=== PATIENT | female | born 1930 | race Caucasian/White ===

== ENCOUNTER 2019-02-17 13:49 | Inpatient (IN) | payer MEDICARE ==
[2019-02-17] MEDS ORDERED: Succinylcholine Chloride 20 MG/ML 10 ml SYRINGE FS ONE (14:34)
[2019-02-17 14:37] LABS: Bilirubin Negative (Negative); Blood, Urine Small (Negative); Clarity CLEAR (Clear); Glucose, Urine (Dipstick) Negative (Negative); Leukocyte Negative (Negative); Nitrite Negative (Negative); Protein, Urine (Dipstick) 30 mg/dL (Neg-Trace); Specific Gravity, Urine 1.022 (1.002-1.036); Urobilinogen 0.2 mg/dL (0.2-1.0); pH, Urine 6.5 (5.0-9.0)
[2019-02-17 14:38] LABS: Bacteria/HPF None Seen HPF (None Seen); Pathc Cast-AUWi Flag 1.49 (0-2.49); WBC/HPF 0-3 HPF (0-3)
[2019-02-17 14:46] LABS: Amphetamine Not Detected (NotDetected); Barbiturates Screen Not Detected (NotDetected); Benzodiazepine Screen Not Detected (NotDetected); Cocaine Metabolite Screen Not Detected (NotDetected); Medtox Control Line Valid? VALID (VALID); Medtox Reader # READER 1; Methadone Not Detected (NotDetected); Methamphetamine Not Detected (NotDetected); Opiate Screen Not Detected (NotDetected); Oxycodone Screen Not Detected (NotDetected); Phencyclidine (PCP) Not Detected (NotDetected); THC/Cannabinoid Screen Not Detected (NotDetected); Tricyclic Screen Not Detected (NotDetected)
[2019-02-17] MEDS ORDERED: Propofol 1,000 MG/100 ML VIAL IV ONE (14:46)
[2019-02-17] MEDS ORDERED: PROPOFOL 0 ML ONE (14:46)
[2019-02-17 14:48] LABS: Hyaline Casts/LPF NONE SEEN LPF (0-3 Hyaline); Renal Epithelial None Seen HPF (0-3); Transitional Epithelial NONE SEEN HPF (0-3)
--- NOTE | 2019-02-17 15:00 | CT ---
CT BRAIN NONCONTRAST: DATE: 02/17/19 TIME: 1431 hours HISTORY: 88-year-old female with altered mental status, acute right-sided facial droop, and right hemiparesis. Dr. Fisher spoke by telephone with Dr. Singh of the emergency department at 1436 hours on 02/17/19. He is already aware of the large intracranial hemorrhage. COMPARISON: 02/22/2008. FINDINGS: Previously in 2007, there was an approximately 2 x 4 cm intra-axial hemorrhage in the superior portio n of the left cerebral hemisphere. Currently, there is a new, much larger acute intra-axial hematoma in the left cerebral hemisphere, measuring approximately 9 x 4.5 x 5.5 cm. The hemorrhage involves th e paracentral upper portion of the left cerebral hemisphere, and reaches the vertex of the brain. Its inferior extent is at the parietal and occipital lobes. It has broken through into the left lateral ventricle where there is a hematoma. The hematoma extends into the third ventricle. There are blood-fluid levels in the occipital horns of the lateral ventricles bilaterally. The occipi blake horns are dilated. There is a 1.2 cm (12 mm) left to right midline shift of the septum pellucidum . There is vasogenic edema surrounding the hematoma. The calvarium is intact. IMPRESSION: Large, acute intra-axial hematoma in the left cerebral hemisphere with intraventricular extension, ma ss effect, and subfalcine herniation. CODE CR. JN R
--- NOTE | 2019-02-17 15:10 | RAD ---
PORTABLE CHEST: Date: 02/17/19 INDICATION: Mental status change. COMPARISON: 1 view chest from 2007. FINDINGS: ET tube is in place with tip above jad. A NG tube is in place. Tip not visualized. The lungs appear clear with no infiltrate. No evidence of vascular congestion or edema. Heart size is upper normal and stable. Aortic calcification again noted. IMPRESSION: No acute lung findings. POS: [facility]
[2019-02-17 15:13] LABS: Actual Bicarbonate (HCO3a) 22.9 mEq/L (22-28); Analyzer IN Cardio ER; Base Excess (BEa) -0.1 mEq/L (-2.0 to +3.0); CO2 Tension 32.4 mmHg (35.0-45.0); Carboxyhemoglobin (COHb) 0.3 gm% (0.0-3.0); O2 Tension (PaO2) 193.1 mmHg (> 60.0); pH, Arterial 7.47 (7.35-7.45)
[2019-02-17 15:14] LABS: Puncture Site RRBRACH
[2019-02-17] MEDS ORDERED: niCARdipine 20MG In NaCl 0 MG/0 ML BAG ONE (15:14)
[2019-02-17 15:24] LABS: #Lymphocytes 0.5 thou/uL (1.20-3.40); #Monocytes 0.3 thou/uL (0.11-0.59); #Neutrophils 7.9 thou/uL (1.40-6.50); %Basophils 0.4 % (0.0-1.0); %Eosinophils 0.2 % (0.0-10.0); %Lymphocytes 5.8 % (21.0-51.0); %Monocytes 3.1 % (0.0-10.0); %Neutrophils 90.5 % (42.0-75.0); Hemoglobin 12.4 g/dL (12.0-16.0); Mean Corpuscular HGB CONC 33.9 g/dL (32.0-36.0); Mean Corpuscular Hemoglobin 34.3 pg (27.0-31.0); Mean Platelet Volume 8.1 fL (7.4-10.4); Platelet Count 192 thou/uL (130-400); Red Blood Cell (RBC) Count 3.62 mill/uL (4.20-5.40); White Blood Cell (WBC) Count 8.8 thou/uL (4.8-10.8)
[2019-02-17 15:29] LABS: INR-International Normal Ratio 0.9; PTT 19.3 SEC (22.9-36.1); Prothrombin Time 12.4 SEC (12.0-14.7)
[2019-02-17] MEDS ORDERED: fentaNYL Citrate/PF 2,000 MCG in Sodium Chloride 0.9% 60 ML IV SCH (15:43)
[2019-02-17 15:46] LABS: ALT (SGPT) 20 U/L (8-55); AST (SGOT) 38 U/L (5-34); Alkaline Phosphatase 76 U/L (40-150); Anion Gap 15 mmol/L (10-20); BUN (Urea Nitrogen) 18 mg/dL (9.8-20.1); Bilirubin, Total 0.7 mg/dL (0.2-1.2); CK (CPK) 472 U/L (29-168); Calc. Creatinine Clearance 0 mL/min (70-130); Calcium 9.1 mg/dL (7.8-10.44); Carbon Dioxide 22 mmol/L (23-31); Chloride 101 mmol/L (98-107); Estimated GFR-MDRD 75; Globulin 2.6 g/dL (2.4-3.5); Glucose 157 mg/dL (83-110); Potassium 4.1 mmol/L (3.5-5.1); Protein, Total 6.6 g/dL (6.0-8.3); Sodium 134 mmol/L (136-145)
[2019-02-17 17:56] VITALS: BMI 22.6
[2019-02-17] MEDS ORDERED: Acetaminophen 325 MG TAB PO PRN (17:56)
[2019-02-17] MEDS ORDERED: Ondansetron PF 4 MG/2 ML Vial IVP PRN (17:56)
[2019-02-17] MEDS ORDERED: Ondansetron ODT 4 MG TAB SL PRN (17:56)
[2019-02-17] MEDS ORDERED: Sodium Chloride 0.9% 1,000 ML IV SCH (17:56)
[2019-02-17] MEDS ORDERED: HYDROcodone/Acetaminophen 5/325 mg Tablet PO PRN ×2 (17:56)
[2019-02-17 20:18] LABS: Troponin I Less than 0.010 ng/mL (< 0.028)
--- NOTE | 2019-02-17 23:05 | PDOC.EVN ---
Event Note - Event Note Event Note: 9:00pm-9:16 pm on February 17, 2019. Discussed with nursing staff and daughter. Updated daughter re: IC bleed. Discussed code status. Pt is DNAR. Daughter wants patient extubated and comfort measures implemented.
--- NOTE | 2019-02-18 00:17 | HP ---
PRIMARY CARE PROVIDER: Dr. No Garcia. CHIEF COMPLAINT: Unresponsiveness. HISTORY OF PRESENT ILLNESS: Ms. Lundy is an 88-year-old lady, who was seen at [facility] on February 17, 2019. The patient is intubated and unable to provide any history. Collateral history was obtained from discussion with the patient's daughter, Ritu by the bedside. Ms. 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 She also has a history of hypertension. Her daughter had a FaceTime session with her yesterday and she was talking well. Today morning, she was found on the floor, unresponsive. She was brought to the emergency room. In the emergency room, she had noncontrast CT scan of the brain , which showed a large acute intra-axial hematoma in the left cerebral hemisphere with intraventricular extension, mass effect and subfalcine herniation. The patient was intubated in the emergency room and transferred to critical care unit. REVIEW OF SYSTEMS: Could not be completed. PAST MEDICAL HISTORY: Hypertension and hemorrhagic stroke. PAST SURGICAL HISTORY: Hysterectomy, surgery for broken arm, surgery for bowel obstruction, with colostomy and reversal, and appendectomy. FAMILY HISTORY: Her father had lung problems. ALLERGIES: STATINS. HOME MEDICATIONS: Lisinopril 10 mg daily. SOCIAL HISTORY: No history of tobacco, alcohol or recreational drug use. CODE STATUS: I discussed Ms. Lundy's code status. She is DNAR. PHYSICAL EXAMINATION: GENERAL: On examination, Ms. Lundy is intubated and mechanically ventilated, unresponsive. VITAL SIGNS: Blood pressure is 116/58, pulse is 72. Respiratory rate is 12. She is afebrile. Oxygen saturation is 100% on the ventilator. EYES: No scleral icterus. Pupils are 4 mm bilaterally, reactive to light. ENT: Endotracheal tube in place. NECK: No cervical lymphadenopathy. RESPIRATORY: Accessory muscles of breathing are not active. Chest wall movements are symmetric bilaterally. LUNGS: Clear to auscultation without wheeze, rhonchi, or crepitations. CARDIOVASCULAR: S1 and S2 are heard, regular. Peripheral pulses palpable. ABDOMEN: Soft, nontender, bowel sounds heard. NEUROLOGIC: Full neurologic examination not possible secondary to patient's noncooperation. Pupils as described earlier. There is no facial droop. No spontaneous movement of the right lower extremity, the patient has spontaneous movements in the left lower extremity. Deep tendon reflexes 2+. MUSCULOSKELETAL: Spontaneous movements in the left lower extremity. SKIN: No rashes or subcutaneous nodules. LYMPHATIC: No cervical lymphadenopathy. PSYCHIATRIC: Unable to assess mood, affect or orientation to person, place, or time. LABORATORY DATA: Ms. Lundy's labs and investigations were reviewed. Electrocardiogram shows normal sinus rhythm, no ST changes to suggest an acute coronary syndrome. Noncontrast CT scan of the brain showed a large acute intra-axial hematoma in the left cerebral hemisphere with intraventricular extension, mass effect and subfalcine herniation. Chest x-ray did not show any pulmonary infiltrates. She has normal white count, normal hemoglobin, normal platelet count, INR 0.9, sodium slightly decreased at 134, normal creatinine, AST slightly elevated at 38, CK elevated at 472, troponin I that is negative x2 and normal lactic acid level. Urinalysis is negative for nitrite and leukocyte esterase. Urine drug screen is negative. Arterial blood gas showed pH of 7.47, pCO2 32.4, and PO2 193.1 while on the ventilator. ASSESSMENT AND PLAN: Ms. Lundy is an 88-year-old lady, who was seen at [facility] on February 17, 2019. Her problem list includes: 1. Intracranial bleed: Ms. Lundy is presenting with intracranial bleed. She is currently intubated and mechanically ventilated. I had a lengthy discussion with the patient's family. The patient is DNAR. They would like the patient to be extubated and comfort measures implemented. Accordingly, the patient will be extubated. Palliative Care Service will be consulted. 2. Acute respiratory failure: The patient is intubated, treated on the ventilator for acute respiratory failure. She will be extubated per family wishes. 3. History of hypertension: The patient is currently hypotensive. 4. Prognosis is poor. We will wait and see how patient does after extubation. Many thanks for allowing me to participate in your patient's care. Please feel free to contact me with any questions or concerns. LEVEL OF SEVERITY: High LEVEL OF COMPLEXITY: Moderate. Job ID: [id number] [facility]
--- NOTE | 2019-02-18 00:55 | CON ---
DATE OF CONSULTATION: HISTORY OF PRESENT ILLNESS: The patient is an 88-year-old female with a past medical history of hypertension, who was brought to the emergency department per EMS after being found down. Home health reports that they visited the patient on Friday, and she appeared to be her normal self at that time. They rechecked on the patient today and this is when they found her unresponsive. EMS was contacted and brought her to [facility], where CT head was done on arrival, which was notable for a large left-sided intracranial hemorrhage with intraventricular extension and midline shift. Initially on arrival, the patient's eyes were reportedly open. She was not responsive verbally, but she would follow some commands by squeezing with her left hand. Her blood pressure did spike for a brief period during intubation, up to a systolic pressure of 200. It otherwise has remained within a normal range. The ER was able to contact the patient's daughter, who presented to the bedside. The patient's daughter reports that patient is DNR and would not wish to have any aggressive measures. She is not reportedly taking any anticoagulants. She has an unremarkable coags and a normal platelet count. PHYSICAL EXAMINATION: VITAL SIGNS: Blood pressure is 111/48, pulse is 71, respiration is 12, and she is currently being mechanically ventilated. She is 100% on the ventilator. GENERAL: The patient is currently intubated. GCS 8. The patient does not open her eyes. She is intubated and she does withdraw to pain over all 4s. HEENT: Head, normocephalic and atraumatic. Eyes; pupils are equal, sluggish. ENT, she currently has an endotracheal tube in place. Oral mucosa is pink, intact, and moist. NECK: Trachea is midline. RESPIRATORY: Symmetric chest expansion. CARDIOVASCULAR: Regular rate and rhythm. MUSCULOSKELETAL: No obvious deformities. Symmetric pulses throughout. NEUROLOGIC: She has a GCS of 8. She has no eye opening. She is intubated, but she does withdraw over all 4s.She is seen spontaneously moving the lower extremities. ASSESSMENT AND PLAN: This is an unfortunate 88-year-old female, who was found down earlier today with a large left-sided intracranial hemorrhage with intraventricular extension on CT of the head. Dr. Perez and I discussed patient's presentation exam and imaging which he also reviewed. At this time, there is no plan for acute neurosurgical intervention. Additionally, the family reports the patient has a DNR and would not want any aggressive measures. They wish to mobilize family and then make decisions regarding extubation at some point. Will defer to primary team on timing of this. Please reach out to Neurosurgery for additional questions or concerns. Job ID: [id number] [facility]TDD
--- NOTE | 2019-02-18 02:09 | CON ---
DATE OF CONSULTATION: 02/17/2019 HISTORY OF PRESENT ILLNESS: Ms. Lundy is an 88-year-old female. She apparently was found down at home. She was found to have a large hemispheric parenchymal brain hemorrhage with ventricular extension and evidence of herniation on the CT. She is mechanically ventilated. I was consulted to assist in her management on admission to the critical care unit. She had been in the hospital here in 2007 for colostomy takedown and then anterior abdominal abscess. According to those records, she had a hemorrhagic stroke in January of that year. She has a history of hypertension and lipid disorder per those records. She has had an appendectomy, right arm open reduction and internal fixation, hysterectomy, exploratory laparotomy, sigmoid colectomy, and diverting ostomy. Apparently in 01/2008, she was also found down on the floor. She was hospitalized at [facility] and then transferred to rehab over here cared for by in the rehab hospital. A sigmoid colectomy was apparently for diverticulitis, that was perforated. FAMILY HISTORY: Noncontributory. She reports statin intolerance. SOCIAL HISTORY: It is unknown whether she smokes or drinks. REVIEW OF SYSTEMS: Not obtainable. PHYSICAL EXAMINATION: GENERAL: She is intubated. VITAL SIGNS: Heart rate 60, blood pressure 93/44, respiratory rate 16, and oximetry is 100%. NECK: She has no lymphadenopathy. LUNGS: Clear. HEART: Regular rhythm. ABDOMEN: Soft. No masses were palpated. EXTREMITIES: Without edema. LABORATORY DATA: White count 8.8, hemoglobin 12.4, and platelets 192,000. Sodium 134, potassium 4.1, chloride 101, bicarb 22, BUN 18, creatinine 0.7, and glucose 157. PH 7.47, pCO2 32, and pO2 193. IMPRESSION: Respiratory failure associated with a massive brain hemorrhage that will likely be a terminal event. Neurosurgery care real estate administrator had seen her in the emergency room. There are no notes from the neurosurgeon yet. We will await their recommendations and continue with supportive care. There is not much to do other than ventilator at this point in time. Critical care time is 35 minutes. Job ID: [id number] MTDD
[2019-02-18] MEDS ORDERED: Morphine 2 MG/ML SYRINGE SLOW IVP SCH (06:30)
[2019-02-18] MEDS ORDERED: Scopolamine 1.5 mg/72 hour Patch TD SCH (09:00)
--- NOTE | 2019-02-18 10:45 | PRG ---
DATE OF SERVICE: 02/18/2019 Yanci Lundy was extubated last night. She is unresponsive. She is not having airway issues at this point in time. I met with the daughter and answered all of her questions. Put in order for p.r.n. morphine. No other acute issues. I answered all the daughter's questions. I am working on the patient to be transferred out of the critical care unit. Job ID: [id number]
[2019-02-18] MEDS: Morphine 2 MG/ML SYRINGE SLOW IVP PRN ×2 (13:26→21:08)
--- NOTE | 2019-02-18 14:20 | PDOC.PN ---
- Subjective Encounter Start Date: 02/18/19 Encounter Start Time: 14:15 Patient seen and examined, grandson at bedside, all questions answered. - Objective Resuscitation Status - Order Detail: 02/17/19 21:17 Resuscitation Status Routine Resuscitation Status: DNAR: NO Resuscitation Discussed with: daughter Ritu Iniguez Vital Signs & Weight: Vital Signs (12 hours) Temp Pulse Resp BP Pulse Ox 02/18/19 13:00 98.9 F 99 24 H 137/71 91 L 02/18/19 11:54 91 L 02/18/19 04:00 98.3 F Weight Weight 135 lb 12.876 oz Most Recent Monitor Data Heart Rate from ECG 89 NIBP 110/50 NIBP BP-Mean 70 Respiration from ECG 36 SpO2 91 I&O: 02/17/19 02/18/19 02/19/19 06:59 06:59 06:59 Intake Total 500 0 Output Total 190 0 Balance 310 0 Result Diagrams: 02/17/19 15:11 02/17/19 15:11 Additional Labs: Accuchecks 02/17/19 14:18 POC Glucose 179 H Phys Exam - Physical Examination Constitutional: NAD HEENT: PERRLA, moist MMs, sclera anicteric Neck: no nodes, no JVD, supple, full ROM Respiratory: no wheezing, no rales, no rhonchi Cardiovascular: RRR, no rub faint murmur Gastrointestinal: soft, non-tender, no distention Dx/Plan (1) Intracranial bleeding Code(s): I62.9 - NONTRAUMATIC INTRACRANIAL HEMORRHAGE, UNSPECIFIED Status: Acute - Plan * patient likely to pass away soon * family at bedside * awaiting packaging manager to come by * no changes in plan of care * continue with comfort measures.
[2019-02-19] MEDS: Acetaminophen 650 MG Suppository PR PRN ×2 (02:57→10:12)
[2019-02-19] MEDS: Morphine 2 MG/ML SYRINGE SLOW IVP PRN (09:19)
--- NOTE | 2019-02-19 12:05 | PDOC.PN ---
- Subjective Encounter Start Date: 02/19/19 Encounter Start Time: 12:03 Patient seen and examined, family at bedside, no new issues, all questions answered. - Objective Resuscitation Status - Order Detail: 02/17/19 21:17 Resuscitation Status Routine Resuscitation Status: DNAR: NO Resuscitation Discussed with: daughter Ritu Iniguez Vital Signs & Weight: Vital Signs (12 hours) Temp Pulse Resp BP BP Pulse Ox 02/19/19 10:19 113/65 02/19/19 08:00 89 L 02/19/19 07:46 99.5 F 94 32 H 86/52 L 89 L 02/19/19 04:50 99.9 F H 110 H 25 H 95/59 L 91 L 02/19/19 03:37 99.8 F H Weight Weight 135 lb 12.876 oz Most Recent Monitor Data Heart Rate from ECG 89 NIBP 110/50 NIBP BP-Mean 70 Respiration from ECG 36 SpO2 91 I&O: 02/18/19 02/19/19 02/20/19 06:59 06:59 06:59 Intake Total 500 12 Output Total 190 250 Balance 310 -238 Result Diagrams: 02/17/19 15:11 02/17/19 15:11 Phys Exam - Physical Examination Constitutional: NAD HEENT: PERRLA, moist MMs, sclera anicteric Neck: no nodes, no JVD, supple coarse breath sounds no respiratory distress Cardiovascular: RRR, no rub faint murmur Gastrointestinal: soft, non-tender, no distention Musculoskeletal: pulses present, edema present (trace) Dx/Plan (1) Intracranial bleeding Code(s): I62.9 - NONTRAUMATIC INTRACRANIAL HEMORRHAGE, UNSPECIFIED Status: Acute - Plan * brain bleed, lower brain stem reflexes intact, strong heart, good lungs, patient without food or water for 24 hours now, may make it for another 2-3 days in my opinion * hospice converstation held with family, will consult hospice for discussion of inpt hospice * change to inpt hospice if she qualifies. * no other changes in plan of care * case and plan d/w patient's family at length, they understand and agree with this plan.
[2019-02-19 15:43] VITALS: BP 122/62; TEMP 98.8
--- NOTE | 2019-02-20 09:13 | PDOC.EVN ---
Event Note - Event Note Event Note: DC SUMMARY [id number]
--- NOTE | 2019-02-21 02:46 | DIS ---
DATE OF ADMISSION: 02/17/2019 DATE OF DISCHARGE: 02/19/2019 ADMITTING DIAGNOSES: 1. Intracranial bleed. 2. Hypertension. DISCHARGE DIAGNOSES: 1. Intracranial bleed, unchanged. 2. Hypertension, unchanged. 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 The patient appeared to have had worsening of her symptoms, was brought to the hospital, had a CT scan done, which showed a large acute intraaxial hematoma in left cerebral hemisphere extending into the intraventricular regions with mass effect and subfalcine herniation and infarction. The patient was initially intubated, sent to the ICU, evaluation was completed by Internal Medicine, Neurosurgery as well as Pulmonary/Critical Care. The patient had a terminal extubation done, was observed for 36 hours and transitioned to inpatient hospice. Case and plan were discussed with the patient's family at length and the patient's family was updated on a daily basis. Family opted to pursue inpatient hospice. All arrangements were made, and the patient was transferred. Case and plan discussed with the patient's family at length. They understood and agreed with this plan. Overall prognosis was poor. Family understood. Job ID: [id number]
== END 2019-02-19 15:53 | disposition hospice, inpatient (51) | DRG 64 ==
LOC: ERS 13:49 → CCU 15:18 → T4-B 02-18 08:31
PROVIDERS: ADMIT Internal Medicine; ATTEND Internal Medicine
PROC: 0BH17EZ Insertion of Endotracheal Airway into Trachea, Via Natural or Artificial Opening (ICD-10-PCS; principal; 2019-02-17)
PROC: 5A1935Z Respiratory Ventilation, Less than 24 Consecutive Hours (ICD-10-PCS; 2019-02-17)
DX: I61.2 Nontraumatic intracerebral hemorrhage in hemisphere, unspecified (principal); J96.00 Acute respiratory failure, unspecified whether with hypoxia or hypercapnia; G93.5 Compression of brain; I69.251 Hemiplegia and hemiparesis following other nontraumatic intracranial hemorrhage affecting right dominant side; I10 Essential (primary) hypertension; Z66 Do not resuscitate; R40.2433 Glasgow coma scale score 3-8, at hospital admission; Z51.5 Encounter for palliative care; I61.5 Nontraumatic intracerebral hemorrhage, intraventricular; Z79.899 Other long term (current) drug therapy; Z88.8 Allergy status to other drugs, medicaments and biological substances
CPT/HCPCS: 31500; 36415; 36416; 51701; 70450; 71045; 80053; 80306; 81003; 81015; 82140; 82550; 82805; 83605; 84484; 85025; 85610; 85730; 93005; 94002; 94760; 96365; 96366; 96375; J2270; J2704; J3010; J7050

== ENCOUNTER 2019-02-19 16:04 | Inpatient (IN) | payer OTHER ==
[2019-02-19] MEDS ORDERED: Morphine 4 MG/ML VIAL SLOW IVP PRN ×2 (16:15→16:21)
[2019-02-19] MEDS ORDERED: Lorazepam 2 MG/ML VIAL SLOW IVP PRN (16:15)
[2019-02-19] MEDS ORDERED: Scopolamine 1.5 mg/72 hour Patch TOP PRN (16:21)
[2019-02-19] MEDS: Acetaminophen 650 MG Suppository PR PRN ×2 (17:08→22:41)
[2019-02-19] MEDS: Morphine 4 MG/ML VIAL SLOW IVP SCH ×2 (17:09→20:35)
[2019-02-19 18:40] VITALS: BMI 22.6
[2019-02-20] MEDS: Morphine 4 MG/ML VIAL SLOW IVP SCH ×6 (01:01→20:35)
[2019-02-20] MEDS: Acetaminophen 650 MG Suppository PR PRN ×2 (08:42→17:29)
[2019-02-21] MEDS: Morphine 4 MG/ML VIAL SLOW IVP SCH ×6 (00:51→21:13)
[2019-02-21] MEDS: Acetaminophen 650 MG Suppository PR PRN ×3 (08:31→21:06)
[2019-02-21] MEDS ORDERED: Scopolamine 1.5 mg/72 hour Patch TOP SCH (09:00)
[2019-02-21] MEDS ORDERED: Lorazepam 2 MG/ML VIAL SLOW IVP PRN (20:05)
[2019-02-21] MEDS: Lorazepam 2 MG/ML VIAL SLOW IVP SCH (21:13)
[2019-02-22] MEDS: Lorazepam 2 MG/ML VIAL SLOW IVP SCH ×8 (00:11→22:12)
[2019-02-22] MEDS: Morphine 4 MG/ML VIAL SLOW IVP SCH ×8 (00:11→22:06)
[2019-02-22] MEDS ORDERED: Lorazepam 2 MG/ML VIAL SLOW IVP PRN ×2 (01:55→16:09)
[2019-02-22] MEDS: Acetaminophen 650 MG Suppository PR PRN ×2 (03:02→09:38)
[2019-02-22] MEDS: Morphine 4 MG/ML VIAL SLOW IVP PRN ×2 (10:55→14:30)
[2019-02-22] MEDS: Scopolamine 1.5 mg/72 hour Patch TOP SCH (10:56)
[2019-02-22] MEDS ORDERED: Morphine 4 MG/ML VIAL SLOW IVP PRN (16:07)
[2019-02-22] MEDS ORDERED: Morphine 4 MG/ML VIAL SLOW IVP SCH (18:00)
[2019-02-22] MEDS ORDERED: Lorazepam 2 MG/ML VIAL SLOW IVP SCH (18:00)
[2019-02-23] MEDS: Morphine 4 MG/ML VIAL SLOW IVP SCH ×12 (00:09→22:10)
[2019-02-23] MEDS: Lorazepam 2 MG/ML VIAL SLOW IVP SCH ×12 (00:18→22:11)
[2019-02-23] MEDS: Scopolamine 1.5 mg/72 hour Patch TOP SCH (12:38)
[2019-02-24] MEDS: Morphine 4 MG/ML VIAL SLOW IVP SCH ×11 (00:20→21:10)
[2019-02-24] MEDS: Lorazepam 2 MG/ML VIAL SLOW IVP SCH ×10 (00:20→18:04)
[2019-02-24] MEDS: Scopolamine 1.5 mg/72 hour Patch TOP SCH (10:11)
[2019-02-24] MEDS ORDERED: Scopolamine 1.5 mg/72 hour Patch TOP SCH (11:00)
[2019-02-24] MEDS ORDERED: Lorazepam 2 MG/ML VIAL SLOW IVP SCH (20:00)
[2019-02-24 20:16] VITALS: BP 0/0; TEMP 0
[2019-02-24] MEDS: Morphine 10 MG/0.5 ML ORAL SYRINGE SL SCH ×2 (21:26→22:46)
[2019-02-24] MEDS: Lorazepam 1 MG TAB PO SCH (22:08)
[2019-02-25] MEDS: Morphine 10 MG/0.5 ML ORAL SYRINGE SL SCH ×9 (00:07→07:33)
[2019-02-25] MEDS: Lorazepam 1 MG TAB PO SCH ×4 (00:08→06:26)
--- NOTE | 2019-02-26 15:39 | DIS ---
DATE OF ADMISSION: 02/19/2019 DATE OF DISCHARGE: 02/25/2019 DATE OF : February 25, 2019. TIME OF : 8:11 a.m. HOSPITAL COURSE: This was an 88-year-old female, who was admitted to hospice after failing treatment in medical therapy for intracranial bleed. She had a history of stroke and right-sided weakness. She was not amenable to any therapy in past at the time noted above. No complications were reported. Family was aware. DISPOSITION: José Miguel. Job ID: [id number]
== END 2019-02-25 07:55 | disposition expired | DRG 951 ==
LOC: T4-B 16:04
PROVIDERS: ADMIT Internal Medicine Nephrology; ATTEND Internal Medicine Nephrology
DX: Z51.5 Encounter for palliative care (principal); J96.00 Acute respiratory failure, unspecified whether with hypoxia or hypercapnia; G93.5 Compression of brain; I61.2 Nontraumatic intracerebral hemorrhage in hemisphere, unspecified; I69.351 Hemiplegia and hemiparesis following cerebral infarction affecting right dominant side; I10 Essential (primary) hypertension; Z66 Do not resuscitate; Z88.8 Allergy status to other drugs, medicaments and biological substances; Z79.899 Other long term (current) drug therapy
CPT/HCPCS: J2060; J2270